=== PATIENT | male | born 1975 | race Caucasian/White ===

== ENCOUNTER 2019-05-04 10:13 | Inpatient (IN) | payer SELFPAY ==
[~2019-05-04] VITALS: Ht 165.1 cm; Wt 63.1 kg
[2019-05-04] VITALS (40 sets, daily range): BP systolic 77–132; BP diastolic 51–83
[2019-05-04] MEDS ORDERED: LORAZEPAM 2MG/ML CPJ ONE (10:19)
[2019-05-04] MEDS ORDERED: SODIUM CHLORIDE 0.9% 1000ML BAG (SEPSIS BOLUS) IV ONE ×4 (10:30→17:00)
[2019-05-04] MEDS ORDERED: LORAZEPAM 2MG/ML CPJ IV ONE (10:30)
[2019-05-04] MEDS ORDERED: PIPERACILLIN/TAZ 3.375G PREMIX 50 ML IV ONE (10:30)
[2019-05-04] MEDS ORDERED: LEVETIRACETAM 500MG PREMIX 100 ML IV ONE (10:30)
[2019-05-04] MEDS ORDERED: CIPROFLOXACIN 0.3% OPHTH SOLN 2.5ML BOTHEYE STA (10:36)
[2019-05-04] MEDS ORDERED: ACYCLOVIR INJ 750 MG in DEXT 5% WATER 100 ML IV STA (10:36)
[2019-05-04 10:38] LABS: BASOPHILS % 0.7 % (0.0-2.0); HEMATOCRIT. 49.7 % (42.0-52.0); LYMPHOCYTES % 7.8 % (20.0-50.0); MEAN CORPUSCULAR HEMOGLOBIN 28.8 pg (28.0-32.0); MEAN CORPUSCULAR VOLUME 89.2 fL (80.0-94.0); MEAN PLATELET VOLUME 8.9 fl (7.4-10.4); MONOCYTES % 3.2 % (2.0-8.0); NEUTROPHILS % 88.3 % (40.0-76.0); PLATELET 430 x1000/uL (130-400); RED BLOOD CELL COUNT 5.57 mill/uL (4.7-6.1); RED CELL DISTRIBUTION WIDTH 13.2 % (11.6-14.6)
[2019-05-04 10:44] LABS: CLARITY URINE CLEAR (CLEAR); COLOR URINE YELLOW (YELLOW); KETONES URINE 1+ (NEGATIVE); LEUKOCYTE ESTERASE URINE NEGATIVE (NEGATIVE); NITRITE URINE NEGATIVE (NEGATIVE); OCCULT BLOOD URINE NEGATIVE (NEGATIVE); PROTEIN URINE 1+ (NEGATIVE); SPECIFIC GRAVITY URINE 1.032 (1.005-1.030)
[2019-05-04] MEDS ORDERED: PROPOFOL 10MG/ML 100ML 100 ML IV SCH (10:45)
[2019-05-04] MEDS ORDERED: INSULIN REGULAR (HUMULIN R) UD 100 UNITS/ML SYR SUBCUT ONE (10:45)
[2019-05-04] MEDS ORDERED: TETRACAINE 0.5% OPHTH DROPS 4ML BOTHEYE ONE (10:45)
[2019-05-04] MEDS ORDERED: FLUORESCEIN SODIUM 1MG/STRIP BOTHEYE ONE (10:45)
[2019-05-04 10:46] LABS: INR 1.2; PROTHROMBIN TIME 12.5 sec (9.6-11.0)
[2019-05-04 10:54] LABS: CHLORIDE 110 mEq/L (98-107)
[2019-05-04] MEDS ORDERED: SUCCINYLCHOLINE CHLORIDE 200MG/10ML IV ONE (11:00)
[2019-05-04] MEDS ORDERED: LACTULOSE 20G/30ML UDC PO ONE (11:00)
[2019-05-04] MEDS ORDERED: ETOMIDATE 2MG/ML 10ML VIAL IV ONE (11:00)
[2019-05-04 11:01] LABS: *AMPHETAMINES SCREEN URINE NEGATIVE (NEGATIVE); *BARBITURATES SCREEN URINE NEGATIVE (NEGATIVE); *BENZODIAZEPINES SCREEN URINE NEGATIVE (NEGATIVE); METHADONE URINE SCREEN NEGATIVE (NEGATIVE); OPIATES URINE SCREEN NEGATIVE (NEGATIVE)
[2019-05-04 11:03] LABS: *COCAINE SCREEN URINE NEGATIVE (NEGATIVE); CANNABINOID URINE SCREEN NEGATIVE (NEGATIVE); PHENCYCLIDINE URINE SCREEN NEGATIVE (NEGATIVE)
[2019-05-04 11:04] LABS: PHENOBARBITAL < 2.1 ug/mL (15.0-40.0)
[2019-05-04 11:06] LABS: CARBAMAZEPINE < 0.5 ug/mL (4-12)
[2019-05-04 11:07] LABS: PARTIAL THROMBOPLASTIN TIME < 21.0 sec (23.4-31.0)
[2019-05-04 11:13] LABS: VALPROIC ACID < 3.0 ug/mL (50-100)
[2019-05-04 11:14] LABS: BETA HYDROXYBUTYRATE 5.4 mMol/L (0.0-0.3)
[2019-05-04] MEDS ORDERED: INSULIN REGULAR (HUMULIN R) 300UNITS/3ML SUBCUT SCH (11:15)
[2019-05-04 11:25] LABS: BG BASE EXCESS -10.3 mmol/L (-2.0-2.0); BG CARBOXYHEMOGLOBIN 0.1 % (0.5-1.5); BG DEOXYHEMOGLOBIN 1.4 % (0.0-5.0); BG METHEMOGLOBIN 0.1 % (0.0-1.5); BG OXYGEN SATURATION 98.6 % (92.0-98.5); BG OXYHEMOGLOBIN 98.4 % (94.0-97.0); BG PCO2 37.1 mmHg (35.0-45.0); BG PH 7.253 (7.350-7.450); BG PO2 185.3 mmHg (75.0-100.0); BG SAMPLE SITE RIGHT RADIAL; BG TIDAL VOLUME(mL) 500 mL; BG TOTAL HEMOGLOBIN 13.7 g/dL (12.0-18.0); BG VENT MODE VENT - A/C; BG VENT RATE 14 set
[2019-05-04] MEDS: VANCOMYCIN 1 G PREMIX 200 ML IV ONE ×2 (11:28→11:43)
[2019-05-04] MEDS ORDERED: INSULIN REGULAR (DRIP) 100 UNITS in SODIUM CHLORIDE 0.9% 100 ML IV ONE (11:54)
[2019-05-04] MEDS ORDERED: LACTULOSE 20G/30ML UDC NG ONE (12:00)
[2019-05-04] MEDS ORDERED: INSULIN REGULAR (HUMULIN R) UD 100 UNITS/ML SYR IV ONE (12:00)
[2019-05-04 12:38] LABS: PHOSPHORUS 5.9 mg/dL (2.5-4.9)
[2019-05-04] MEDS ORDERED: NOREPINEPHRINE 4 MG in DEXT 5% WATER 246 ML IV ONE (12:45)
[2019-05-04] MEDS ORDERED: NOREPINEPHRINE 4MG/250ML PMX 250 ML IV ONE (12:48)
[2019-05-04] MEDS ORDERED: INSULIN REGULAR (HUMULIN R) 300UNITS/3ML IV SCH (13:15)
[2019-05-04] MEDS ORDERED: NOREPINEPHRINE 4MG/250ML PMX 250 ML IV PRN (13:15)
[2019-05-04] MEDS ORDERED: LIDOCAINE HCL 1% 20ML VIAL (Pyxis) INJ ONE (13:30)
[2019-05-04] MEDS ORDERED: CLONIDINE 0.1MG TABLET PO PRN (13:45)
[2019-05-04] MEDS ORDERED: NITROGLYCERIN 0.4MG TABLET SL SL PRN (13:45)
[2019-05-04] MEDS ORDERED: DEXTROSE 50% WATER 50ML SYRINGE IV PRN (13:45)
[2019-05-04] MEDS ORDERED: SODIUM CHLORIDE 0.9% 1,000 ML IV SCH (13:45)
[2019-05-04] MEDS ORDERED: GUAIFENESIN 200MG/10ML SUGAR FREE UDC PO PRN (13:45)
[2019-05-04] MEDS ORDERED: PIPERACILLIN/TAZ 3.375G PREMIX 50 ML IV SCH (13:45)
[2019-05-04] MEDS ORDERED: SODIUM CHLORIDE 0.9% 2,000 ML IV SCH (14:45)
[2019-05-04 15:03] LABS: FOLIC ACID (FOLATE) SERUM >20 ng/mL ng/mL (>5.38)
[2019-05-04 15:15] LABS: VITAMIN B12 SERUM 1349 pg/mL (211-911)
[2019-05-04 15:18] LABS: ETHANOL BLOOD < 10 mg/dL
[2019-05-04 15:22] LABS: LDL CHOLESTEROL 116 mg/dL (5-100)
[2019-05-04 15:24] LABS: HDL CHOLESTEROL 28 mg/dL (40-59)
[2019-05-04 15:26] LABS: TOTAL IRON BINDING CAPACITY 243 ug/dL (250-450)
[2019-05-04] MEDS: ENOXAPARIN 40MG/0.4ML SYR SUBCUT SCH (16:23)
[2019-05-04] MEDS: LACTULOSE 20G/30ML UDC PO SCH ×2 (16:23→21:25)
[2019-05-04] MEDS: BLOOD SUGAR DIAGNOSTIC STRIP TEST SCH ×8 (16:23→23:00)
[2019-05-04] MEDS ORDERED: SODIUM CHLORIDE 0.9% 2,000 ML IV ONE (17:00)
[2019-05-04] MEDS: IPRATROPIUM/ALBUTEROL 0.5-3(2.5)MG/3ML NEB HHN SCH ×2 (17:13→20:15)
[2019-05-04] MEDS: MVI, ADULT NO.1 10 ML, FOLIC ACID 1 MG, THIAMINE HCL 100 MG in SODIUM CHLORIDE 0.9% 1,0... IV SCH ×8 (17:44→21:25)
[2019-05-04] MEDS: PHENYLEPHRINE 40 MG in DEXT 5% WATER 246 ML IV PRN (17:45)
[2019-05-04] MEDS ORDERED: KCL 20MEQ/100ML PREMIX 100 ML IV SCH (18:30)
[2019-05-04] MEDS ORDERED: SODIUM CHL 0.9% + KCL 20MEQ/L 1,000 ML IV SCH (18:30)
[2019-05-04] MEDS ORDERED: SODIUM CHL 0.45% + KCL 20MEQ/L 1,000 ML IV SCH (18:30)
[2019-05-04] MEDS: PIPERACILLIN/TAZOBACTAM 3.375 G in DEXT 5% WATER 100 ML IV SCH (19:00)
[2019-05-04] MEDS: DEXT 5%/0.45% NACL KCL 20MEQ/L 1,000 ML IV SCH (21:00)
[2019-05-04] MEDS ORDERED: NOREPINEPHRINE 32 MG in DEXT 5% WATER 468 ML IV PRN (21:00)
[2019-05-04 21:50] LABS: HEPATITIS A AB IGM NEGATIVE (NEGATIVE)
[2019-05-04 22:26] LABS: HEPATITIS B SURFACE ANTIGEN NEGATIVE
[2019-05-05] VITALS (89 sets, daily range): BP systolic 94–157; BP diastolic 56–101
[2019-05-05] MEDS: IPRATROPIUM/ALBUTEROL 0.5-3(2.5)MG/3ML NEB HHN SCH ×6 (00:17→19:50)
[2019-05-05] MEDS: LACTULOSE 20G/30ML UDC PO SCH ×7 (00:48→23:45)
[2019-05-05] MEDS: BLOOD SUGAR DIAGNOSTIC STRIP TEST SCH ×24 (01:00→23:41)
[2019-05-05] MEDS: PROPOFOL 10MG/ML 100ML 100 ML IV PRN ×3 (01:03→17:57)
[2019-05-05] MEDS: PHENYLEPHRINE 40 MG in DEXT 5% WATER 246 ML IV PRN ×4 (01:46→19:32)
[2019-05-05] MEDS: PIPERACILLIN/TAZOBACTAM 3.375 G in DEXT 5% WATER 100 ML IV SCH ×3 (03:00→18:00)
[2019-05-05] MEDS: DEXTROSE 50% WATER 50ML SYRINGE IV PRN ×2 (03:33→16:50)
[2019-05-05] MEDS: DEXT 5%/0.45% NACL KCL 20MEQ/L 1,000 ML IV SCH ×3 (04:04→21:54)
[2019-05-05 04:33] LABS: BASOPHILS % 0.1 % (0.0-2.0); EOSINOPHILS % 0.1 % (0.0-5.0); HEMATOCRIT. 37.3 % (42.0-52.0); HEMOGLOBIN. 12.7 g/dL (14.0-18.0); LYMPHOCYTES % 13.2 % (20.0-50.0); MEAN CORPUSCULAR VOLUME 85.4 fL (80.0-94.0); MEAN PLATELET VOLUME 8.6 fl (7.4-10.4); MONOCYTES % 3.7 % (2.0-8.0); NEUTROPHILS % 82.9 % (40.0-76.0); PLATELET 260 x1000/uL (130-400); RED BLOOD CELL COUNT 4.37 mill/uL (4.7-6.1); RED CELL DISTRIBUTION WIDTH 12.6 % (11.6-14.6)
[2019-05-05 04:51] LABS: CHLORIDE 133 mEq/L (98-107)
[2019-05-05 04:57] LABS: PHOSPHORUS 2.8 mg/dL (2.5-4.9)
[2019-05-05] MEDS: INSULIN REGULAR (DRIP) 100 UNITS in SODIUM CHLORIDE 0.9% 99 ML IV SCH (05:33)
[2019-05-05] MEDS: PANTOPRAZOLE SODIUM 40 MG/VIAL IV SCH (08:28)
[2019-05-05 08:41] LABS: BG FRACTION INSPIRED OXYGEN 60; BG HCO3 ACT 20.9 mmol/L (22.0-26.0); BG METHEMOGLOBIN 0.3 % (0.0-1.5); BG OXYHEMOGLOBIN 98.7 % (94.0-97.0); BG PH 7.406 (7.350-7.450); BG PO2 192.3 mmHg (75.0-100.0); BG SAMPLE SITE RIGHT RADIAL; BG TIDAL VOLUME(mL) 500 mL; BG VENT MODE VENT - A/C; BG VENT RATE 18 set
[2019-05-05] MEDS ORDERED: VANCOMYCIN 750 MG PREMIX 150 ML IV SCH ×2 (13:00)
[2019-05-05] MEDS: VANCOMYCIN 1 G PREMIX 200 ML IV SCH (13:42)
[2019-05-05] MEDS: ENOXAPARIN 40MG/0.4ML SYR SUBCUT SCH (16:49)
[2019-05-06] VITALS (98 sets, daily range): BP systolic 86–135; BP diastolic 45–82
[2019-05-06] MEDS: IPRATROPIUM/ALBUTEROL 0.5-3(2.5)MG/3ML NEB HHN SCH ×6 (00:10→20:01)
[2019-05-06 01:13] LABS: CHLORIDE 128 mEq/L (98-107)
[2019-05-06 01:21] LABS: VANCOMYCIN TROUGH 11.2 ug/mL (5.0-10.0)
[2019-05-06] MEDS: BLOOD SUGAR DIAGNOSTIC STRIP TEST SCH ×12 (01:27→23:53)
[2019-05-06] MEDS: VANCOMYCIN 1 G PREMIX 200 ML IV SCH (01:48)
[2019-05-06] MEDS: PIPERACILLIN/TAZOBACTAM 3.375 G in DEXT 5% WATER 100 ML IV SCH ×3 (03:07→18:15)
[2019-05-06] MEDS: PROPOFOL 10MG/ML 100ML 100 ML IV PRN ×3 (03:09→18:14)
[2019-05-06] MEDS: INSULIN REGULAR (DRIP) 100 UNITS in SODIUM CHLORIDE 0.9% 99 ML IV SCH (03:12)
[2019-05-06] MEDS: LACTULOSE 20G/30ML UDC PO SCH ×6 (04:48→23:58)
[2019-05-06] MEDS: DEXT 5%/0.45% NACL KCL 20MEQ/L 1,000 ML IV SCH ×3 (07:22→21:56)
[2019-05-06] MEDS ORDERED: DEXTROSE 50% WATER 50ML SYRINGE IV PRN (09:00)
[2019-05-06] MEDS ORDERED: SODIUM CHLORIDE 0.45% 1,000 ML IV SCH (09:00)
[2019-05-06] MEDS: PANTOPRAZOLE SODIUM 40 MG/VIAL IV SCH (09:47)
[2019-05-06] MEDS: PHENYLEPHRINE 40 MG in DEXT 5% WATER 246 ML IV PRN (09:48)
[2019-05-06] MEDS: VANCOMYCIN 750 MG PREMIX 150 ML IV SCH ×2 (09:48→17:00)
[2019-05-06 09:51] LABS: BG BASE EXCESS 1.5 mmol/L (-2.0-2.0); BG CARBOXYHEMOGLOBIN 0.3 % (0.5-1.5); BG DEOXYHEMOGLOBIN 2.6 % (0.0-5.0); BG FRACTION INSPIRED OXYGEN 50; BG HCO3 ACT 24.9 mmol/L (22.0-26.0); BG METHEMOGLOBIN 0.3 % (0.0-1.5); BG OXYGEN SATURATION 97.4 % (92.0-98.5); BG OXYHEMOGLOBIN 96.8 % (94.0-97.0); BG SAMPLE SITE RIGHT RADIAL; BG TIDAL VOLUME(mL) 500 mL; BG TOTAL HEMOGLOBIN 11.1 g/dL (12.0-18.0); BG VENT MODE VENT - A/C; BG VENT RATE 18 set
[2019-05-06] MEDS: INSULIN GLARGINE UD 100 UNITS/ML SYR SUBCUT SCH (12:01)
[2019-05-06] MEDS: INSULIN LISPRO 100 UNITS/ML SUBCUT SCH ×4 (12:02→23:59)
[2019-05-06 13:10] LABS: HIV SCREEN 4G Non Reactive (Non Reactive)
[2019-05-06] MEDS: ENOXAPARIN 40MG/0.4ML SYR SUBCUT SCH (15:19)
[2019-05-07] VITALS (93 sets, daily range): BP systolic 95–132; BP diastolic 47–75
[2019-05-07] MEDS: IPRATROPIUM/ALBUTEROL 0.5-3(2.5)MG/3ML NEB HHN SCH ×6 (00:09→20:44)
[2019-05-07] MEDS: PROPOFOL 10MG/ML 100ML 100 ML IV PRN ×4 (01:27→19:54)
[2019-05-07] MEDS: VANCOMYCIN 750 MG PREMIX 150 ML IV SCH ×2 (01:44→10:30)
[2019-05-07] MEDS: PIPERACILLIN/TAZOBACTAM 3.375 G in DEXT 5% WATER 100 ML IV SCH ×4 (02:43→22:17)
[2019-05-07] MEDS: BLOOD SUGAR DIAGNOSTIC STRIP TEST SCH ×6 (03:50→23:51)
[2019-05-07] MEDS: LACTULOSE 20G/30ML UDC PO SCH ×2 (03:53→08:11)
[2019-05-07] MEDS: INSULIN LISPRO 100 UNITS/ML SUBCUT SCH ×6 (03:54→23:50)
[2019-05-07 04:42] LABS: BASOPHILS % 0.1 % (0.0-2.0); EOSINOPHILS % 0.9 % (0.0-5.0); HEMATOCRIT. 33.4 % (42.0-52.0); HEMOGLOBIN. 11.2 g/dL (14.0-18.0); LYMPHOCYTES % 10.4 % (20.0-50.0); MEAN CORPUSCULAR HEMOGLOBIN 28.7 pg (28.0-32.0); MEAN CORPUSCULAR VOLUME 85.3 fL (80.0-94.0); MEAN PLATELET VOLUME 9.4 fl (7.4-10.4); MONOCYTES % 4.5 % (2.0-8.0); NEUTROPHILS % 84.1 % (40.0-76.0); PLATELET 142 x1000/uL (130-400); RED BLOOD CELL COUNT 3.91 mill/uL (4.7-6.1); RED CELL DISTRIBUTION WIDTH 12.8 % (11.6-14.6)
[2019-05-07 04:50] LABS: CHLORIDE 120 mEq/L (98-107)
[2019-05-07] MEDS: DEXT 5%/0.45% NACL KCL 20MEQ/L 1,000 ML IV SCH ×4 (06:41→23:49)
[2019-05-07] MEDS ORDERED: POTASSIUM CHLORIDE 20MEQ/PACKET PO SCH (07:45)
[2019-05-07] MEDS: PANTOPRAZOLE SODIUM 40 MG/VIAL IV SCH (08:11)
[2019-05-07] MEDS ORDERED: POTASSIUM PHOS,M-BASIC-D-BASIC 30 MMOL in SODIUM CHLORIDE 0.9% 500 ML IV ONE (09:00)
[2019-05-07] MEDS: INSULIN GLARGINE UD 100 UNITS/ML SYR SUBCUT SCH (10:31)
[2019-05-07] MEDS: METOCLOPRAMIDE HCL 10MG/2ML VIAL IV SCH ×3 (13:42→23:49)
[2019-05-07] MEDS: MULTIVITAMINS,THER W-MINERALS TABLET PO SCH (13:43)
[2019-05-07] MEDS: THIAMINE HCL 100MG TABLET PO SCH (13:43)
[2019-05-07] MEDS: FOLIC ACID 1MG TABLET PO SCH (13:43)
[2019-05-07] MEDS: ACYCLOVIR 200MG CAPSULE PO SCH ×3 (13:48→21:12)
[2019-05-07 13:52] LABS: PHOSPHORUS 3.4 mg/dL (2.5-4.9)
[2019-05-07] MEDS: ENOXAPARIN 40MG/0.4ML SYR SUBCUT SCH (16:12)
[2019-05-07] MEDS: VANCOMYCIN 1 G PREMIX 200 ML IV SCH (18:18)
[2019-05-08] VITALS (71 sets, daily range): BP systolic 104–140; BP diastolic 53–84
[2019-05-08] MEDS: IPRATROPIUM/ALBUTEROL 0.5-3(2.5)MG/3ML NEB HHN SCH ×5 (00:20→20:43)
[2019-05-08] MEDS: VANCOMYCIN 1 G PREMIX 200 ML IV SCH ×2 (02:12→11:06)
[2019-05-08] MEDS: BLOOD SUGAR DIAGNOSTIC STRIP TEST SCH ×5 (04:00→19:41)
[2019-05-08] MEDS: PIPERACILLIN/TAZOBACTAM 3.375 G in DEXT 5% WATER 100 ML IV SCH ×2 (04:13→09:10)
[2019-05-08] MEDS: INSULIN LISPRO 100 UNITS/ML SUBCUT SCH ×5 (04:13→19:41)
[2019-05-08 05:03] LABS: BASOPHILS % 0.1 % (0.0-2.0); EOSINOPHILS % 0.8 % (0.0-5.0); HEMATOCRIT. 30.9 % (42.0-52.0); HEMOGLOBIN. 10.6 g/dL (14.0-18.0); LYMPHOCYTES % 11.7 % (20.0-50.0); MEAN CORPUSCULAR HEMOGLOBIN 29.2 pg (28.0-32.0); MEAN CORPUSCULAR VOLUME 84.8 fL (80.0-94.0); MEAN PLATELET VOLUME 9.7 fl (7.4-10.4); MONOCYTES % 6.5 % (2.0-8.0); NEUTROPHILS % 80.9 % (40.0-76.0); PLATELET 154 x1000/uL (130-400); RED BLOOD CELL COUNT 3.65 mill/uL (4.7-6.1); RED CELL DISTRIBUTION WIDTH 12.6 % (11.6-14.6)
[2019-05-08 05:12] LABS: CHLORIDE 120 mEq/L (98-107)
[2019-05-08 05:24] LABS: PHOSPHORUS 2.4 mg/dL (2.5-4.9)
[2019-05-08] MEDS: METOCLOPRAMIDE HCL 10MG/2ML VIAL IV SCH ×3 (05:55→18:42)
[2019-05-08] MEDS: ACYCLOVIR 200MG CAPSULE PO SCH ×5 (06:06→21:17)
[2019-05-08] MEDS: DEXT 5%/0.45% NACL KCL 20MEQ/L 1,000 ML IV SCH ×3 (06:57→20:14)
[2019-05-08] MEDS: PROPOFOL 10MG/ML 100ML 100 ML IV PRN (07:05)
[2019-05-08] MEDS ORDERED: POTASSIUM PHOS,M-BASIC-D-BASIC 30 MMOL in DEXT 5% WATER 500 ML IV SCH (09:00)
[2019-05-08] MEDS: PANTOPRAZOLE SODIUM 40 MG/VIAL IV SCH (09:10)
[2019-05-08] MEDS: MULTIVITAMINS,THER W-MINERALS TABLET PO SCH (09:10)
[2019-05-08] MEDS: THIAMINE HCL 100MG TABLET PO SCH (09:10)
[2019-05-08] MEDS: INSULIN GLARGINE UD 100 UNITS/ML SYR SUBCUT SCH (11:06)
[2019-05-08] MEDS: FOLIC ACID 1MG TABLET PO SCH (11:06)
[2019-05-08 12:02] LABS: BG BASE EXCESS -2.6 mmol/L (-2.0-2.0); BG FRACTION INSPIRED OXYGEN 40; BG HCO3 ACT 21.4 mmol/L (22.0-26.0); BG PCO2 34.6 mmHg (35.0-45.0); BG PO2 101.7 mmHg (75.0-100.0); BG SAMPLE SITE RIGHT BRACHIAL; BG TOTAL HEMOGLOBIN 11.5 g/dL (12.0-18.0); BG VENT MODE VENT - CPAP
[2019-05-08 12:03] LABS: BG CARBOXYHEMOGLOBIN 0.3 % (0.5-1.5); BG DEOXYHEMOGLOBIN 2.6 % (0.0-5.0); BG METHEMOGLOBIN 0.2 % (0.0-1.5); BG OXYGEN SATURATION 97.4 % (92.0-98.5); BG OXYHEMOGLOBIN 96.9 % (94.0-97.0)
[2019-05-08] MEDS: LACTULOSE 20G/30ML UDC PO SCH ×2 (14:34→21:17)
[2019-05-08] MEDS: CEFAZOLIN 2,000 MG in DEXT 5% WATER 100 ML IV SCH ×2 (14:34→21:17)
[2019-05-08] MEDS: ENOXAPARIN 40MG/0.4ML SYR SUBCUT SCH (16:41)
[2019-05-08] MEDS: MORPHINE SULFATE 2 MG/ML CPJ (NOT FOR IM USE) IV PRN (19:36)
[2019-05-08] MEDS: MUPIROCIN 2% OINT 22GM TOP SCH (21:17)
[2019-05-09] VITALS (45 sets, daily range): BP systolic 108–155; BP diastolic 61–100
[2019-05-09] MEDS: MORPHINE SULFATE 2 MG/ML CPJ (NOT FOR IM USE) IV PRN ×2 (00:12→09:30)
[2019-05-09] MEDS: DIPHENHYDRAMINE 50MG/ML VIAL IV PRN ×2 (00:12→21:10)
[2019-05-09] MEDS: BLOOD SUGAR DIAGNOSTIC STRIP TEST SCH ×6 (00:13→20:49)
[2019-05-09] MEDS: IPRATROPIUM/ALBUTEROL 0.5-3(2.5)MG/3ML NEB HHN SCH ×5 (00:27→20:35)
[2019-05-09] MEDS: DEXT 5%/0.45% NACL KCL 20MEQ/L 1,000 ML IV SCH ×4 (04:03→20:05)
[2019-05-09] MEDS: INSULIN LISPRO 100 UNITS/ML SUBCUT SCH ×6 (04:03→20:00)
[2019-05-09] MEDS: MUPIROCIN 2% OINT 22GM TOP SCH ×3 (05:11→22:12)
[2019-05-09] MEDS: LACTULOSE 20G/30ML UDC PO SCH ×3 (05:11→21:10)
[2019-05-09] MEDS: CEFAZOLIN 2,000 MG in DEXT 5% WATER 100 ML IV SCH ×3 (05:11→21:10)
[2019-05-09] MEDS: METOCLOPRAMIDE HCL 10MG/2ML VIAL IV SCH ×4 (05:11→17:09)
[2019-05-09] MEDS: PANTOPRAZOLE SODIUM 40 MG/VIAL IV SCH (08:43)
[2019-05-09] MEDS: THIAMINE HCL 100MG TABLET PO SCH (10:36)
[2019-05-09] MEDS: FOLIC ACID 1MG TABLET PO SCH (10:36)
[2019-05-09] MEDS: MULTIVITAMINS,THER W-MINERALS TABLET PO SCH (10:36)
[2019-05-09] MEDS: INSULIN GLARGINE UD 100 UNITS/ML SYR SUBCUT SCH (10:38)
[2019-05-09] MEDS: ENOXAPARIN 40MG/0.4ML SYR SUBCUT SCH (16:02)
[2019-05-09] MEDS: ACETYLCYSTEINE 100MG/ML 10% VIAL 4ML INH SCH (20:35)
[2019-05-10] VITALS (11 sets, daily range): BP systolic 122–158; BP diastolic 37–97
[2019-05-10] MEDS: METOCLOPRAMIDE HCL 10MG/2ML VIAL IV SCH ×4 (00:26→18:00)
[2019-05-10] MEDS: BLOOD SUGAR DIAGNOSTIC STRIP TEST SCH ×6 (00:26→22:00)
[2019-05-10] MEDS: IPRATROPIUM/ALBUTEROL 0.5-3(2.5)MG/3ML NEB HHN SCH ×4 (01:37→21:15)
[2019-05-10] MEDS: INSULIN LISPRO 100 UNITS/ML SUBCUT SCH ×6 (04:00→20:00)
[2019-05-10] MEDS: LACTULOSE 20G/30ML UDC PO SCH ×3 (04:51→22:00)
[2019-05-10] MEDS: MUPIROCIN 2% OINT 22GM TOP SCH ×3 (04:52→22:08)
[2019-05-10] MEDS: DEXT 5%/0.45% NACL KCL 20MEQ/L 1,000 ML IV SCH ×2 (04:59→10:22)
[2019-05-10] MEDS: CEFAZOLIN 2,000 MG in DEXT 5% WATER 100 ML IV SCH ×3 (05:00→22:00)
[2019-05-10 07:32] LABS: BASOPHILS % 0.1 % (0.0-2.0); EOSINOPHILS % 1.1 % (0.0-5.0); HEMATOCRIT. 32.7 % (42.0-52.0); HEMOGLOBIN. 11.2 g/dL (14.0-18.0); LYMPHOCYTES % 18.6 % (20.0-50.0); MEAN CORPUSCULAR HEMOGLOBIN 28.6 pg (28.0-32.0); MEAN CORPUSCULAR VOLUME 83.8 fL (80.0-94.0); MEAN PLATELET VOLUME 8.6 fl (7.4-10.4); MONOCYTES % 9.1 % (2.0-8.0); NEUTROPHILS % 71.1 % (40.0-76.0); PLATELET 207 x1000/uL (130-400); RED CELL DISTRIBUTION WIDTH 12.8 % (11.6-14.6)
[2019-05-10 07:49] LABS: CHLORIDE 111 mEq/L (98-107)
[2019-05-10] MEDS: ACETYLCYSTEINE 100MG/ML 10% VIAL 4ML INH SCH (08:10)
[2019-05-10] MEDS: PANTOPRAZOLE SODIUM 40 MG/VIAL IV SCH (08:29)
[2019-05-10] MEDS: FOLIC ACID 1MG TABLET PO SCH (08:29)
[2019-05-10] MEDS: THIAMINE HCL 100MG TABLET PO SCH (08:29)
[2019-05-10] MEDS: MULTIVITAMINS,THER W-MINERALS TABLET PO SCH (08:35)
[2019-05-10] MEDS: INSULIN GLARGINE UD 100 UNITS/ML SYR SUBCUT SCH (09:51)
[2019-05-10] MEDS ORDERED: POTASSIUM CHLORIDE 20MEQ/PACKET PO SCH (14:45)
[2019-05-10] MEDS ORDERED: POTASSIUM CHLORIDE INJ 40 MEQ in DEXT 5% WATER 250 ML IV SCH (16:00)
[2019-05-10] MEDS: ENOXAPARIN 40MG/0.4ML SYR SUBCUT SCH (16:50)
[2019-05-10] MEDS: FAMOTIDINE 20MG/2ML VIAL IV SCH (22:07)
[2019-05-10] MEDS: DIPHENHYDRAMINE 50MG/ML VIAL IV PRN (22:13)
[2019-05-11] VITALS (12 sets, daily range): BP systolic 117–172; BP diastolic 73–94
[2019-05-11] MEDS: BLOOD SUGAR DIAGNOSTIC STRIP TEST SCH ×6 (00:13→20:54)
[2019-05-11] MEDS: METOCLOPRAMIDE HCL 10MG/2ML VIAL IV SCH ×5 (00:13→23:01)
[2019-05-11] MEDS: IPRATROPIUM/ALBUTEROL 0.5-3(2.5)MG/3ML NEB HHN SCH ×5 (02:08→21:34)
[2019-05-11] MEDS: ACETYLCYSTEINE 100MG/ML 10% VIAL 4ML INH SCH ×3 (02:09→16:44)
[2019-05-11] MEDS: INSULIN LISPRO 100 UNITS/ML SUBCUT SCH ×6 (04:59→20:56)
[2019-05-11] MEDS: DEXTROSE 50% WATER 50ML SYRINGE IV PRN (04:59)
[2019-05-11] MEDS: CEFAZOLIN 2,000 MG in DEXT 5% WATER 100 ML IV SCH ×3 (05:01→21:13)
[2019-05-11] MEDS: LACTULOSE 20G/30ML UDC PO SCH ×3 (05:02→21:13)
[2019-05-11] MEDS: MUPIROCIN 2% OINT 22GM TOP SCH ×3 (05:10→21:13)
[2019-05-11] MEDS: FOLIC ACID 1MG TABLET PO SCH (09:38)
[2019-05-11] MEDS: FAMOTIDINE 20MG/2ML VIAL IV SCH ×2 (09:38→20:53)
[2019-05-11] MEDS: THIAMINE HCL 100MG TABLET PO SCH (09:38)
[2019-05-11] MEDS: MULTIVITAMINS,THER W-MINERALS TABLET PO SCH (09:38)
[2019-05-11] MEDS: ACETAMINOPHEN 325MG TABLET PO PRN (09:55)
[2019-05-11] MEDS: INSULIN GLARGINE UD 100 UNITS/ML SYR SUBCUT SCH (10:45)
[2019-05-11 15:37] LABS: BASOPHILS % 0.5 % (0.0-2.0); EOSINOPHILS % 0.9 % (0.0-5.0); HEMATOCRIT. 34.4 % (42.0-52.0); HEMOGLOBIN. 11.5 g/dL (14.0-18.0); LYMPHOCYTES % 18.4 % (20.0-50.0); MEAN CORPUSCULAR HEMOGLOBIN 28.2 pg (28.0-32.0); MEAN CORPUSCULAR VOLUME 83.9 fL (80.0-94.0); MEAN PLATELET VOLUME 9.2 fl (7.4-10.4); MONOCYTES % 6.2 % (2.0-8.0); PLATELET 211 x1000/uL (130-400); RED CELL DISTRIBUTION WIDTH 12.6 % (11.6-14.6)
[2019-05-11 15:44] LABS: CHLORIDE 108 mEq/L (98-107)
[2019-05-11] MEDS: ENOXAPARIN 40MG/0.4ML SYR SUBCUT SCH (18:07)
[2019-05-11] MEDS ORDERED: DEXT 5% WATER + KCL 40MEQ/L 250 ML IV ONE (19:30)
[2019-05-11] MEDS ORDERED: POTASSIUM CHLORIDE 20MEQ TABLET SR PO NR (19:30)
[2019-05-11] MEDS: DIPHENHYDRAMINE 50MG/ML VIAL IV PRN (20:58)
[2019-05-11] MEDS ORDERED: POTASSIUM CHLORIDE INJ 40 MEQ in DEXT 5% WATER 250 ML IV NR (21:30)
[2019-05-11] MEDS: ONDANSETRON HCL 4MG/2ML INJ IV PRN (23:01)
[2019-05-12] VITALS (14 sets, daily range): BP systolic 86–166; BP diastolic 44–94
[2019-05-12] MEDS: BLOOD SUGAR DIAGNOSTIC STRIP TEST SCH ×6 (00:59→21:42)
[2019-05-12] MEDS: INSULIN LISPRO 100 UNITS/ML SUBCUT SCH ×6 (04:59→21:00)
[2019-05-12] MEDS: METOCLOPRAMIDE HCL 10MG/2ML VIAL IV SCH ×3 (05:00→17:47)
[2019-05-12] MEDS: LACTULOSE 20G/30ML UDC PO SCH ×3 (05:01→21:41)
[2019-05-12] MEDS: MUPIROCIN 2% OINT 22GM TOP SCH ×3 (05:01→21:42)
[2019-05-12] MEDS: CEFAZOLIN 2,000 MG in DEXT 5% WATER 100 ML IV SCH ×3 (05:01→21:39)
[2019-05-12] MEDS: IPRATROPIUM/ALBUTEROL 0.5-3(2.5)MG/3ML NEB HHN SCH ×3 (05:30→21:20)
[2019-05-12] MEDS: ACETYLCYSTEINE 100MG/ML 10% VIAL 4ML INH SCH ×2 (06:00→07:59)
[2019-05-12 06:52] LABS: CHLORIDE 108 mEq/L (98-107)
[2019-05-12 06:58] LABS: PHOSPHORUS 3.1 mg/dL (2.5-4.9)
[2019-05-12] MEDS: IPRATROPIUM/ALBUTEROL 0.5-3(2.5)MG/3ML NEB NEB PRN ×2 (07:58→13:57)
[2019-05-12] MEDS: ACETAMINOPHEN 325MG TABLET PO PRN (08:10)
[2019-05-12] MEDS: FAMOTIDINE 20MG/2ML VIAL IV SCH ×2 (08:53→21:39)
[2019-05-12] MEDS: THIAMINE HCL 100MG TABLET PO SCH (08:54)
[2019-05-12] MEDS: MULTIVITAMINS,THER W-MINERALS TABLET PO SCH (08:54)
[2019-05-12] MEDS: FOLIC ACID 1MG TABLET PO SCH (08:54)
[2019-05-12] MEDS: INSULIN GLARGINE UD 100 UNITS/ML SYR SUBCUT SCH (10:03)
[2019-05-12] MEDS: ENOXAPARIN 40MG/0.4ML SYR SUBCUT SCH (16:19)
[2019-05-12] MEDS: DIPHENHYDRAMINE 50MG/ML VIAL IV PRN (21:39)
[2019-05-12] MEDS: ONDANSETRON HCL 4MG/2ML INJ IV PRN (21:39)
[2019-05-12] MEDS: DEXTROSE 50% WATER 50ML SYRINGE IV PRN (21:43)
[2019-05-13] VITALS (11 sets, daily range): BP systolic 109–158; BP diastolic 61–95
[2019-05-13] MEDS: METOCLOPRAMIDE HCL 10MG/2ML VIAL IV SCH ×3 (01:02→11:45)
[2019-05-13] MEDS: ACETYLCYSTEINE 100MG/ML 10% VIAL 4ML INH SCH ×3 (01:07→21:52)
[2019-05-13] MEDS: IPRATROPIUM/ALBUTEROL 0.5-3(2.5)MG/3ML NEB HHN SCH ×4 (01:07→21:53)
[2019-05-13] MEDS: CEFAZOLIN 2,000 MG in DEXT 5% WATER 100 ML IV SCH ×3 (05:07→21:36)
[2019-05-13] MEDS: LACTULOSE 20G/30ML UDC PO SCH ×3 (05:07→21:34)
[2019-05-13] MEDS: MUPIROCIN 2% OINT 22GM TOP SCH ×3 (05:08→21:36)
[2019-05-13] MEDS: BLOOD SUGAR DIAGNOSTIC STRIP TEST SCH ×4 (06:34→21:34)
[2019-05-13] MEDS: INSULIN LISPRO 100 UNITS/ML SUBCUT SCH ×4 (06:48→21:00)
[2019-05-13] MEDS: MULTIVITAMINS,THER W-MINERALS TABLET PO SCH (08:38)
[2019-05-13] MEDS: THIAMINE HCL 100MG TABLET PO SCH (08:38)
[2019-05-13] MEDS: FAMOTIDINE 20MG/2ML VIAL IV SCH ×2 (08:38→21:33)
[2019-05-13] MEDS: FOLIC ACID 1MG TABLET PO SCH (08:38)
[2019-05-13] MEDS: INSULIN GLARGINE UD 100 UNITS/ML SYR SUBCUT SCH (09:15)
[2019-05-13] MEDS: DIPHENHYDRAMINE 50MG/ML VIAL IV PRN (15:08)
[2019-05-13] MEDS: ENOXAPARIN 40MG/0.4ML SYR SUBCUT SCH (15:13)
[2019-05-14] VITALS (8 sets, daily range): BP systolic 110–133; BP diastolic 70–96
[2019-05-14] MEDS: IPRATROPIUM/ALBUTEROL 0.5-3(2.5)MG/3ML NEB HHN SCH ×4 (00:10→14:44)
[2019-05-14] MEDS: LACTULOSE 20G/30ML UDC PO SCH ×3 (06:11→22:09)
[2019-05-14] MEDS: CEFAZOLIN 2,000 MG in DEXT 5% WATER 100 ML IV SCH ×3 (06:11→22:07)
[2019-05-14] MEDS: MUPIROCIN 2% OINT 22GM TOP SCH ×3 (06:11→22:09)
[2019-05-14] MEDS: INSULIN LISPRO 100 UNITS/ML SUBCUT SCH ×4 (07:30→22:09)
[2019-05-14] MEDS: BLOOD SUGAR DIAGNOSTIC STRIP TEST SCH ×4 (07:57→21:00)
[2019-05-14] MEDS: FAMOTIDINE 20MG/2ML VIAL IV SCH ×2 (09:20→22:08)
[2019-05-14] MEDS: FOLIC ACID 1MG TABLET PO SCH (09:21)
[2019-05-14] MEDS: ACETAMINOPHEN 325MG TABLET PO PRN (09:21)
[2019-05-14] MEDS: THIAMINE HCL 100MG TABLET PO SCH (09:21)
[2019-05-14] MEDS: MULTIVITAMINS,THER W-MINERALS TABLET PO SCH (09:21)
[2019-05-14] MEDS: ACETYLCYSTEINE 100MG/ML 10% VIAL 4ML INH SCH (09:42)
[2019-05-14] MEDS: INSULIN GLARGINE UD 100 UNITS/ML SYR SUBCUT SCH (10:00)
[2019-05-14] MEDS ORDERED: HALOPERIDOL LACTATE 5MG/ML VIAL IM SCH (13:30)
[2019-05-14] MEDS: ENOXAPARIN 40MG/0.4ML SYR SUBCUT SCH (16:38)
[2019-05-15] VITALS: BP 133/90
[2019-05-15 04:00] VITALS: BP 138/84
[2019-05-15] MEDS: LACTULOSE 20G/30ML UDC PO SCH ×3 (06:18→22:00)
[2019-05-15] MEDS: MUPIROCIN 2% OINT 22GM TOP SCH ×3 (06:19→22:00)
[2019-05-15] MEDS: CEFAZOLIN 2,000 MG in DEXT 5% WATER 100 ML IV SCH ×3 (06:24→22:00)
[2019-05-15] MEDS: BLOOD SUGAR DIAGNOSTIC STRIP TEST SCH ×4 (07:30→21:00)
[2019-05-15] MEDS: INSULIN LISPRO 100 UNITS/ML SUBCUT SCH ×4 (07:30→21:00)
[2019-05-15 08:00] VITALS: BP 82/47
[2019-05-15] MEDS: MULTIVITAMINS,THER W-MINERALS TABLET PO SCH (09:00)
[2019-05-15] MEDS: FOLIC ACID 1MG TABLET PO SCH (09:00)
[2019-05-15] MEDS: FAMOTIDINE 20MG/2ML VIAL IV SCH ×2 (09:00→21:00)
[2019-05-15] MEDS: THIAMINE HCL 100MG TABLET PO SCH (09:00)
[2019-05-15] MEDS: IPRATROPIUM/ALBUTEROL 0.5-3(2.5)MG/3ML NEB HHN SCH ×2 (09:50→14:00)
[2019-05-15] MEDS: INSULIN GLARGINE UD 100 UNITS/ML SYR SUBCUT SCH (10:00)
[2019-05-15] MEDS: ENOXAPARIN 40MG/0.4ML SYR SUBCUT SCH (16:00)
[2019-05-15 20:42] VITALS: BP 123/76
[2019-05-16] MEDS: ACETAMINOPHEN 325MG TABLET PO PRN ×2 (02:42→09:47)
[2019-05-16 04:00] VITALS: BP 124/98
[2019-05-16] MEDS: CEFAZOLIN 2,000 MG in DEXT 5% WATER 100 ML IV SCH ×3 (06:00→21:00)
[2019-05-16] MEDS: BLOOD SUGAR DIAGNOSTIC STRIP TEST SCH ×4 (06:35→21:48)
[2019-05-16] MEDS: MUPIROCIN 2% OINT 22GM TOP SCH ×3 (06:35→21:01)
[2019-05-16] MEDS: LACTULOSE 20G/30ML UDC PO SCH ×3 (06:35→21:00)
[2019-05-16 08:00] VITALS: BP 109/64
[2019-05-16] MEDS: FAMOTIDINE 20MG/2ML VIAL IV SCH ×2 (08:16→21:00)
[2019-05-16] MEDS: MULTIVITAMINS,THER W-MINERALS TABLET PO SCH (08:16)
[2019-05-16] MEDS: THIAMINE HCL 100MG TABLET PO SCH (08:16)
[2019-05-16] MEDS: FOLIC ACID 1MG TABLET PO SCH (08:16)
[2019-05-16] MEDS: INSULIN LISPRO 100 UNITS/ML SUBCUT SCH ×3 (08:17→22:02)
[2019-05-16] MEDS: INSULIN GLARGINE UD 100 UNITS/ML SYR SUBCUT SCH (09:48)
[2019-05-16 12:00] VITALS: BP 128/80
[2019-05-16] MEDS: ENOXAPARIN 40MG/0.4ML SYR SUBCUT SCH (15:02)
[2019-05-16 20:00] VITALS: BP 122/79
[2019-05-17] VITALS: BP 131/83
[2019-05-17 04:00] VITALS: BP 109/78
[2019-05-17] MEDS: LACTULOSE 20G/30ML UDC PO SCH ×3 (04:34→21:04)
[2019-05-17] MEDS: MUPIROCIN 2% OINT 22GM TOP SCH ×3 (05:36→21:10)
[2019-05-17] MEDS: BLOOD SUGAR DIAGNOSTIC STRIP TEST SCH ×4 (06:23→21:03)
[2019-05-17 08:00] VITALS: BP 126/67
[2019-05-17] MEDS: FOLIC ACID 1MG TABLET PO SCH (10:15)
[2019-05-17] MEDS: MULTIVITAMINS,THER W-MINERALS TABLET PO SCH (10:15)
[2019-05-17] MEDS: FAMOTIDINE 20MG/2ML VIAL IV SCH ×2 (10:15→20:51)
[2019-05-17] MEDS: THIAMINE HCL 100MG TABLET PO SCH (10:15)
[2019-05-17] MEDS: INSULIN GLARGINE UD 100 UNITS/ML SYR SUBCUT SCH (10:18)
[2019-05-17] MEDS: INSULIN LISPRO 100 UNITS/ML SUBCUT SCH ×4 (10:19→21:00)
[2019-05-17 12:00] VITALS: BP 137/88
[2019-05-17] MEDS ORDERED: LORAZEPAM 2MG/ML CPJ IV NR (18:00)
[2019-05-17] MEDS: ENOXAPARIN 40MG/0.4ML SYR SUBCUT SCH (18:21)
[2019-05-17 20:00] VITALS: BP 120/72
[2019-05-18] VITALS: BP 117/68
[2019-05-18 04:00] VITALS: BP 114/65
[2019-05-18] MEDS: LACTULOSE 20G/30ML UDC PO SCH ×4 (06:00→21:41)
[2019-05-18] MEDS: MUPIROCIN 2% OINT 22GM TOP SCH ×3 (06:10→21:41)
[2019-05-18] MEDS: BLOOD SUGAR DIAGNOSTIC STRIP TEST SCH ×4 (06:55→20:50)
[2019-05-18 08:00] VITALS: BP 109/60
[2019-05-18] MEDS: FAMOTIDINE 20MG/2ML VIAL IV SCH ×2 (08:53→20:51)
[2019-05-18] MEDS: THIAMINE HCL 100MG TABLET PO SCH (08:53)
[2019-05-18] MEDS: FOLIC ACID 1MG TABLET PO SCH (08:53)
[2019-05-18] MEDS: MULTIVITAMINS,THER W-MINERALS TABLET PO SCH (08:53)
[2019-05-18] MEDS: INSULIN LISPRO 100 UNITS/ML SUBCUT SCH ×4 (09:25→21:00)
[2019-05-18] MEDS: INSULIN GLARGINE UD 100 UNITS/ML SYR SUBCUT SCH (11:19)
[2019-05-18] MEDS: ENOXAPARIN 40MG/0.4ML SYR SUBCUT SCH (16:00)
== END 2019-05-18 21:30 | disposition home or self-care (01) | DRG 720 ==
LOC: ER 10:13 → EDBD 12:24 → MICUNO 12:24 → ENRESERV 13:48 → 5EST 05-09 23:20 → 6EST 05-15 20:27
PROVIDERS: ADMIT Internal Medicine; ATTEND Internal Medicine
PROC: 5A1955Z Respiratory Ventilation, Greater than 96 Consecutive Hours (ICD-10-PCS; principal; 2019-05-04)
PROC: 05HY33Z Insertion of Infusion Device into Upper Vein, Percutaneous Approach (ICD-10-PCS; 2019-05-04)
PROC: B54NZZA Ultrasonography of Left Upper Extremity Veins, Guidance (ICD-10-PCS; 2019-05-04)
PROC: 0BH17EZ Insertion of Endotracheal Airway into Trachea, Via Natural or Artificial Opening (ICD-10-PCS; 2019-05-04)
DX: A41.9 Sepsis, unspecified organism (principal); J96.00 Acute respiratory failure, unspecified whether with hypoxia or hypercapnia; N17.0 Acute kidney failure with tubular necrosis; R65.21 Severe sepsis with septic shock; J18.9 Pneumonia, unspecified organism; E11.10 Type 2 diabetes mellitus with ketoacidosis without coma; G92 Toxic encephalopathy; E72.20 Disorder of urea cycle metabolism, unspecified; K72.90 Hepatic failure, unspecified without coma; L02.214 Cutaneous abscess of groin; E11.22 Type 2 diabetes mellitus with diabetic chronic kidney disease; N18.9 Chronic kidney disease, unspecified; D18.1 Lymphangioma, any site; L08.0 Pyoderma; K85.90 Acute pancreatitis without necrosis or infection, unspecified; E86.0 Dehydration; E87.0 Hyperosmolality and hypernatremia; E87.6 Hypokalemia; K76.0 Fatty (change of) liver, not elsewhere classified; L73.9 Follicular disorder, unspecified; G40.89 Other seizures; Z22.322 Carrier or suspected carrier of Methicillin resistant Staphylococcus aureus; Z78.1 Physical restraint status
CPT/HCPCS: 31500; 36415; 36600; 51702; 70551; 71045; 73030; 76700; 76937; 80048; 80061; 80156; 80165; 80184; 80185; 80202; 80305; 80320; 81003; 82010; 82140; 82375; 82550; 82607; 82746; 82805; 82962; 83036; 83540; 83550; 83605; 83735; 83880; 84100; 84134; 84145; 84443; 84478; 84484; 86592; 86705; 86709; 86803; 87070; 87075; 87077; 87186; 87340; 87389; 87591; 92610; 93005; 93306; 93970; 94002; 94003; 94640; 96365; 96367; 96368; 96372; 96375; 97162; 97166; 99291; A6261; C1725; C9113; J0133; J0330; J0690; J1200; J1630; J1650; J1815; J1953; J2060; J2270; J2370; J2405; J2543; J2704; J2765; J3370; J3411; J3480; J3490; J7030; J7040; J7050; J7060; J7608; J7620; A4315; G0480